=== PATIENT | female | born 1995 | race Hispanic/Latino ===

== ENCOUNTER 2017-03-13 09:09 | Emergency (ER) | payer MEDICAID ==
[2017-03-13 09:12] VITALS: BMI 29.8
[2017-03-13 09:13] VITALS: BP 123/60; PULSE 87; RESP 16; TEMP 98.6; O2SAT 97
--- NOTE | 2017-03-13 10:01 | ED PDOC ---
HPI: CCC, URI, Sore Throat Time Seen by Provider: 03/13/17 09:54 Chief Complaint (Nursing): ENT Problem Chief Complaint (Provider): COugh History Per: Patient History/Exam Limitations: no limitations Have you had recent travel within the past 21 days to any of the following countries: [place], [place], [place] or [place]?: No Onset/Duration Of Symptoms: Days (1 week) Current Symptoms Are (Timing): Still Present Additional Complaint(s): Pt. with cough, congestion, runny nose, green sputum from nose. No chest pain, dyspnea, fever. No weakness. States she missed her period for 2 weeks and wants to check her preg status. Is not having any abd pain, vaginal dc, dysuria. Past Medical History Reviewed: Nursing Documentation, Vital Signs Vital Signs: Last Vital Signs Temp 98.6 F 03/13/17 09:12 Pulse 87 03/13/17 09:12 Resp 16 03/13/17 09:12 BP 123/60 03/13/17 09:12 Pulse Ox 97 03/13/17 09:12 - Medical History Other PMH: sinus infections - Surgical History Surgical History: No Surg Hx - Family History Family History: States: Unknown Family Hx - Living Arrangements Living Arrangements: With Family - Social History Current smoker - smoking cessation education provided: No Alcohol: None Drugs: Denies - Home Medications Home Medications: Ambulatory Orders Medication Instructions Recorded Azithromycin [Zithromax] 250 mg PO DAILY 5 Days tab 03/13/17 - Allergies Allergies/Adverse Reactions: Allergies Allergy/AdvReac Type Severity Reaction Status Date / Time No Known Allergies Allergy Verified 03/13/17 09:59 Review of Systems Constitutional: Negative for: Fever, Weakness ENT: Positive for: Nose Pain, Nose Discharge, Nose Congestion, Throat Pain Respiratory: Positive for: Cough. Negative for: Shortness of Breath, Sputum Gastrointestinal: Negative for: Nausea, Vomiting, Abdominal Pain, Diarrhea Genitourinary Female: Negative for: Dysuria Neurological: Negative for: Weakness, Numbness Physical Exam - Reviewed Nursing Documentation Reviewed: Yes Vital Signs Reviewed: Yes - Physical Exam Appears: Positive for: Non-toxic, No Acute Distress Head Exam: Positive for: ATRAUMATIC, NORMAL INSPECTION, NORMOCEPHALIC ENT: Positive for: Sinus Pain/Drainage (sinus pain frontal and maxillary sinus b /l), Nasal Congestion. Negative for: Pharyngeal Erythema, Tonsillar Exudate, Tonsillar Swelling Neck: Positive for: Normal, Painless ROM, Supple Cardiovascular/Chest: Positive for: Regular Rate, Rhythm Respiratory: Positive for: Normal Breath Sounds Gastrointestinal/Abdominal: Positive for: Normal Exam, Bowel Sounds, Soft. Negative for: Tenderness Back: Positive for: Normal Inspection. Negative for: L CVA Tenderness, R CVA Tenderness Extremity: Positive for: Normal ROM. Negative for: Tenderness, Pedal Edema - ECG O2 Sat by Pulse Oximetry: 97 Pulse Ox Interpretation: Normal - Progress ED Course And Treament: 1002: Stable. AAOx3. Pain free. Tolerated PO. Preg found out in ED. No abd pain, weakness, dysuria, pelvic pain, vaginal bleeding. Disposition - Clinical Impression Clinical Impression: Sinusitis, Early stage of - Patient ED Disposition Is Patient to be Admitted: No Counseled Patient/Family Regarding: Studies Performed, Diagnosis, Need For Followup, Rx Given - Disposition Referrals: [facility] [Outside] - 03/14/17 [facility] [Outside] - 03/14/17 Disposition: Routine/Home Disposition Time: 10:04 Condition: STABLE Additional Instructions: Return if not better in 3 days. Prescriptions: Azithromycin [Zithromax] 250 mg PO DAILY 5 Days tab Instructions: Sinusitis (ED), (ED) Forms: [facility] (North Korean), [facility] ED School/Work Excuse
== END 2017-03-13 10:20 | disposition home or self-care (01) ==
LOC: H.ER 09:09
DX: J32.9 Chronic sinusitis, unspecified (principal); Z33.1 Pregnant state, incidental

== ENCOUNTER 2017-03-15 18:33 | Emergency (ER) | payer MEDICAID ==
[2017-03-15 18:33] VITALS: BMI 29.8
[2017-03-15 19:02] VITALS: BP 128/71; PULSE 90; RESP 16; TEMP 98.3; O2SAT 98
[2017-03-15] MEDS ORDERED: Albuterol-Ipratrop 3 mg / 0.5 (3 ml) UD INH STA (19:44)
[2017-03-15] MEDS ORDERED: Sodium Chloride 0.9% 1,000 ML IV STA (19:44)
[2017-03-15] MEDS ORDERED: Albuterol-Ipratrop 3 mg / 0.5 (3 ml) UD ONE (19:56)
--- NOTE | 2017-03-15 21:23 | ED PDOC ---
HPI: CCC, URI, Sore Throat Time Seen by Provider: 03/15/17 19:29 Chief Complaint (Nursing): Flu-like Symptoms Chief Complaint (Provider): Congestion History Per: Patient History/Exam Limitations: no limitations Additional Complaint(s): Patient is a 21 y/o female with no significant past medical history presenting to the emergency department for congestion, dry cough, generalized weakness, chills, and nausea. Notes that she was seen in the ED recently for flu -like symptoms and was given a z-luke. Despite being compliant with the medication for two days, patient reports feeling worse. Notes that she has not been drinking adequate fluids due to her nausea. Denies diarrhea, vomiting, urinary symptoms, or other complaints. Of note, patient was made aware that she during the previous ED visit for the flu-like complaint. PCP: none provided. Past Medical History Reviewed: Historical Data, Nursing Documentation, Vital Signs Vital Signs: Last Vital Signs Temp 98.3 F 03/15/17 18:59 Pulse 90 03/15/17 18:59 Resp 16 03/15/17 18:59 BP 128/71 03/15/17 18:59 Pulse Ox 98 03/16/17 03:13 - Medical History PMH: No Chronic Diseases - Surgical History Surgical History: No Surg Hx - Family History Family History: States: No Known Family Hx - Social History Current smoker - smoking cessation education provided: No Ex-Smoker (has not smoked in the last 12 months): No Alcohol: None Drugs: Denies - Home Medications Home Medications: Ambulatory Orders Medication Instructions Recorded Azithromycin [Zithromax] 250 mg PO DAILY 5 Days tab 03/13/17 Albuterol HFA [Ventolin HFA 90 1 - 2 puff IH Q6 PRN #1 inhaler 03/15/17 mcg/actuation (8 g)] - Allergies Allergies/Adverse Reactions: Allergies Allergy/AdvReac Type Severity Reaction Status Date / Time No Known Allergies Allergy Verified 03/15/17 18:59 Review of Systems ROS Statement: Except As Marked, All Systems Reviewed And Found Negative Constitutional: Positive for: Chills, Weakness, Malaise, Other (fatigue) ENT: Positive for: Nose Congestion Respiratory: Positive for: Cough (dry) Gastrointestinal: Positive for: Nausea. Negative for: Vomiting, Diarrhea Genitourinary Female: Negative for: Dysuria, Hematuria Physical Exam - Reviewed Nursing Documentation Reviewed: Yes Vital Signs Reviewed: Yes - Physical Exam Appears: Positive for: Well, Non-toxic, No Acute Distress Head Exam: Positive for: ATRAUMATIC, NORMAL INSPECTION, NORMOCEPHALIC Skin: Positive for: Normal Color, Warm, Dry Eye Exam: Positive for: Normal appearance Neck: Positive for: Normal Cardiovascular/Chest: Positive for: Tachycardia. Negative for: Regular Rate, Rhythm Respiratory: Positive for: Decreased Breath Sounds (bilateral). Negative for: Accessory Muscle Use, Respiratory Distress Gastrointestinal/Abdominal: Positive for: Normal Exam, Soft. Negative for: Tenderness Extremity: Positive for: Normal ROM Neurologic/Psych: Positive for: Alert, Oriented (x3) - Laboratory Results Result Diagrams: 03/15/17 21:46 03/15/17 21:46 - ECG O2 Sat by Pulse Oximetry: 98 (RA) Pulse Ox Interpretation: Normal Medical Decision Making Medical Decision Making: Time: 19:53 Initial impression: Patient is a 21 year old female with generalized weakness, fatigue, and past flu-like symptoms in the setting of . Initial plan: Labs: Beta-HCG, CMP, CBC ED Urine Dipstick Albuterol 3 mL INH Peak flow pre and post treatment Urinalysis [place] test Reevaluation 22:30 Labs reviewed no clinically significant abnormalities. Patient reports improvement and is stable on discharge Patient is stable for discharge home DX URI, FU PCP 2 days, push fluids, RX Albuterol and continue Zpack Scribe Attestation: Documented by Adriana Kang, acting as a scribe for Wilfrido Garcia MD. Provider Scribe Attestation: All medical record entries made by the Scribe were at my direction and personally dictated by me. I have reviewed the chart and agree that the record accurately reflects my personal performance of the history, physical exam, medical decision making, and the department course for this patient. I have also personally directed, reviewed, and agree with the discharge instructions and disposition. Disposition - Clinical Impression Clinical Impression: URI (upper respiratory infection), Early stage of - Patient ED Disposition Is Patient to be Admitted: No - Disposition Disposition: Routine/Home Disposition Time: 22:30 Condition: STABLE Prescriptions: Albuterol HFA [Ventolin HFA 90 mcg/actuation (8 g)] 1 - 2 puff IH Q6 PRN #1 inhaler PRN Reason: cough/SOB Instructions: Upper Respiratory Infection (ED) Forms: [employer] (Kiswahili)
[2017-03-15 21:50] LABS: BASO # 0.1 K/uL (0.0-0.2); EOS # 0.1 K/uL (0.0-0.7); EOS % 1.2 % (0.0-4.0); HEMATOCRIT 37.6 % (34.0-47.0); LYMPH # 1.6 K/uL (1.0-4.3); LYMPH % 26.8 % (20.0-40.0); MEAN CELL VOLUME 89.7 fl (81.0-99.0); MEAN CORPUSCULAR HEMOGLOBIN 30.5 pg (27.0-31.0); MEAN PLATELET VOLUME 10.1 fl (7.2-11.7); MONO # 0.8 K/uL (0.0-0.8); MONO % 14.1 % (0.0-10.0); NEUT # 3.4 K/uL (1.8-7.0); NEUT % 56.9 % (50.0-75.0); RED CELL DISTRIBUTION WIDTH 11.9 % (11.5-14.5)
[2017-03-15 21:58] LABS: RBC URINE 3 /hpf (0-3); URINE BACTERIA RARE (<OCC); URINE BILIRUBIN NEGATIVE (NEGATIVE); URINE BLOOD NEGATIVE (NEGATIVE); URINE COLOR YELLOW (YELLOW); URINE GLUCOSE (UA) NEG (Normal); URINE KETONE TRACE mg/dL (NEGATIVE); URINE LEUKOCYTE ESTERASE NEG Leu/uL (Negative); URINE PROTEIN 30 mg/dL (NEGATIVE); URINE UROBILINOGEN 0.2-1.0 mg/dL (0.2-1.0); WBC URINE 1 /hpf (0-5)
[2017-03-15 22:01] LABS: ALB/GLOB RATIO 1.5 (1.0-2.1); ALKALINE PHOSPHATASE 49 U/L (38-126); ALT/SGPT 36 U/L (9-52); AST/SGOT 25 U/L (14-36); BILIRUBIN,TOTAL 0.4 mg/dl (0.2-1.3); BLOOD UREA NITROGEN 11 mg/dl (7-17); CALCIUM 9.4 mg/dL (8.4-10.2); CARBON DIOXIDE 22 mmol/L (22-30); CHLORIDE 105 mmol/L (98-107); GFR AFRICAN-AMERICAN > 60; GLUCOSE,RANDOM 70 mg/dL (65-105); POTASSIUM 3.5 MMOL/L (3.6-5.0); SODIUM 141 mmol/l (132-148); TOTAL PROTEIN 7.6 G/DL (6.3-8.2)
== END 2017-03-15 23:59 | disposition home or self-care (01) ==
LOC: H.ER 18:33
DX: J06.9 Acute upper respiratory infection, unspecified (principal); Z33.1 Pregnant state, incidental
CPT/HCPCS: 80053; 81003; 84702; 85025; 86308; 87804; 96360; 99283; J7040

== ENCOUNTER 2017-04-07 10:51 | Emergency (ER) | payer MEDICAID ==
[2017-04-07 10:53] VITALS: BMI 30.7
[2017-04-07 10:55] VITALS: BP 134/77; PULSE 95; RESP 17; TEMP 98.4; O2SAT 98
--- NOTE | 2017-04-07 11:17 | ED PDOC ---
HPI: General Adult Time Seen by Provider: 04/07/17 11:15 Chief Complaint (Nursing): Abnormal Labs History Per: Patient (21 y/o female 10 week here due to inability to obtain f/u. States she was seen for cough/dehydration recently and noted to have thromocytopenia. Has been unable to obtain appt with women[facility] clinic b/c of this.) Past Medical History Reviewed: Historical Data, Nursing Documentation, Vital Signs Vital Signs: Last Vital Signs Temp 98.4 F 04/07/17 10:53 Pulse 95 H 04/07/17 10:53 Resp 17 04/07/17 10:53 BP 134/77 04/07/17 10:53 Pulse Ox 98 04/07/17 11:22 - Family History Family History: States: Unknown Family Hx - Home Medications Home Medications: Ambulatory Orders Medication Instructions Recorded Azithromycin [Zithromax] 250 mg PO DAILY 5 Days tab 03/13/17 Albuterol HFA [Ventolin HFA 90 1 - 2 puff IH Q6 PRN #1 inhaler 03/15/17 mcg/actuation (8 g)] - Allergies Allergies/Adverse Reactions: Allergies Allergy/AdvReac Type Severity Reaction Status Date / Time No Known Allergies Allergy Verified 03/15/17 18:59 Review of Systems ROS Statement: Except As Marked, All Systems Reviewed And Found Negative Physical Exam - Reviewed Nursing Documentation Reviewed: Yes Vital Signs Reviewed: Yes - Physical Exam Appears: Positive for: Well, Non-toxic, No Acute Distress Head Exam: Positive for: ATRAUMATIC, NORMAL INSPECTION, NORMOCEPHALIC Skin: Positive for: Normal Color, Warm, DRY Eye Exam: Positive for: EOMI, Normal appearance, PERRL ENT: Positive for: Normal ENT Inspection Neck: Positive for: Normal, Painless ROM Cardiovascular/Chest: Positive for: Regular Rate, Rhythm Respiratory: Positive for: CNT, Normal Breath Sounds Gastrointestinal/Abdominal: Positive for: Normal Exam, Bowel Sounds, Soft Back: Positive for: Normal Inspection Extremity: Positive for: Normal ROM Neurologic/Psych: Positive for: Alert, Oriented - ECG O2 Sat by Pulse Oximetry: 98 - Progress ED Course And Treament: patient to f/u with high risk outpatient. d/w acid recovery operator service who will help her with appointment. Disposition - Clinical Impression Clinical Impression: Thrombocytopenia during - Patient ED Disposition Is Patient to be Admitted: No - Disposition Disposition: Routine/Home Disposition Time: 11:36 Condition: FAIR Additional Instructions: CALL [phone] AND SPEAK WITH [employer] TO MAKE APPOINTMENT Instructions: Thrombocytopenia (ED) Forms: [employer] (Portuguese)
== END 2017-04-07 12:01 | disposition home or self-care (01) ==
LOC: H.ER 10:51
DX: O99.111 Other diseases of the blood and blood-forming organs and certain disorders involving the immune mechanism complicating pregnancy, first trimester (principal); Z3A.10 10 weeks gestation of pregnancy

== ENCOUNTER 2017-06-16 13:49 | Emergency (ER) | payer SELFPAY ==
[2017-06-16 13:50] VITALS: BMI 30.7
[2017-06-16 14:12] VITALS: BP 98/68; PULSE 100; RESP 16; TEMP 98; O2SAT 98
--- NOTE | 2017-06-16 14:43 | ED PDOC ---
HPI: Nose Bleed Time Seen by Provider: 06/16/17 14:18 Chief Complaint (Nursing): ENT Problem Chief Complaint (Provider): Nosebleed History Per: Patient History/Exam Limitations: no limitations Additional Complaint(s): Pt @ 20 weeks reports bleeding with clots from R nare today that last 10 minutes. Pt has h/o thrombocytopenia. Denies nausea, vomiting, abdominal pain , vaginal bleeding, dysuria, hematuria. Past Medical History Reviewed: Nursing Documentation, Vital Signs Vital Signs: Last Vital Signs Temp 98.0 F 06/16/17 14:08 Pulse 100 H 06/16/17 14:08 Resp 16 06/16/17 14:08 BP 98/68 L 06/16/17 14:08 Pulse Ox 98 06/16/17 14:08 - Medical History Other PMH: Thrombocytopenia - Surgical History Surgical History: Appendectomy - Family History Family History: States: Unknown Family Hx - Social History Current smoker - smoking cessation education provided: No Alcohol: None - Home Medications Home Medications: Ambulatory Orders Medication Instructions Recorded Azithromycin [Zithromax] 250 mg PO DAILY 5 Days tab 03/13/17 Albuterol HFA [Ventolin HFA 90 1 - 2 puff IH Q6 PRN #1 inhaler 03/15/17 mcg/actuation (8 g)] - Allergies Allergies/Adverse Reactions: Allergies Allergy/AdvReac Type Severity Reaction Status Date / Time No Known Allergies Allergy Verified 03/15/17 18:59 Review of Systems Constitutional: Negative for: Fever, Chills ENT: Positive for: Other (Epistaxis) Cardiovascular: Negative for: Chest Pain, Palpitations Respiratory: Negative for: Cough, Shortness of Breath Gastrointestinal: Negative for: Nausea, Vomiting, Abdominal Pain, Diarrhea Genitourinary Female: Negative for: Vaginal Discharge, Vaginal Bleeding Musculoskeletal: Negative for: Back Pain Skin: Negative for: Rash, Lesions Neurological: Negative for: Headache Physical Exam - Reviewed Nursing Documentation Reviewed: Yes Vital Signs Reviewed: Yes - Physical Exam Appears: Positive for: Well, No Acute Distress Head Exam: Positive for: ATRAUMATIC, NORMAL INSPECTION Skin: Positive for: Normal Color, Warm, Dry Eye Exam: Positive for: Normal appearance, EOMI, PERRL ENT: Positive for: Pharynx Is (Clear), Other (NARES: No blood, no lesions). Negative for: Nasal Congestion Cardiovascular/Chest: Positive for: Regular Rate, Rhythm Respiratory: Positive for: Normal Breath Sounds Gastrointestinal/Abdominal: Positive for: Bowel Sounds, Soft (Gravid). Negative for: Tenderness Back: Positive for: Normal Inspection Neurologic/Psych: Positive for: Alert, Oriented - Laboratory Results Result Diagrams: 06/16/17 15:05 06/16/17 15:05 - ECG O2 Sat by Pulse Oximetry: 98 Pulse Ox Interpretation: Normal - Physician Consult Information Time Consulting Physican Contacted: 16:01 Physician Contacted: Renzo Hagen Outcome Of Conversation: Recommends follow-up with Dr. Hagen. If return of bleeding, she should go to tertiary care center. Medical Decision Making Medical Decision Makin yo @ 20 weeks and thrombocytopenia with epistaxis. - labs --Call placed to Dr. Covarrubias but at convention and unreachable. Patient states she has an appointment with Dr. Covarrubias on . Advised to make an earlier appointment. 16:25 --Will call in Stockpile to her pharmacy. Disposition - Clinical Impression Clinical Impression: Epistaxis, Thrombocytopenia, Anemia affecting in second trimester, UTI (urinary tract infection) in in second trimester - Patient ED Disposition Is Patient to be Admitted: No - Disposition Referrals: Bryson Covarrubias MD [Family Provider] - Disposition: Routine/Home Disposition Time: 16:02 Condition: STABLE Additional Instructions: FOLLOW-UP [facility]. Instructions: Nosebleeds, Anemia of Chronic Disease, Bleeding Precautions Forms: [employer] (Bruneian) Addendum Addendum: 06/25/17 07:17 Pt contacted by [employer], referrals for Ob and Heme-Onc ordered.
[2017-06-16 15:13] LABS: BASO % 0.5 % (0.0-2.0); EOS % 0.7 % (0.0-4.0); LYMPH # 1.3 K/uL (1.0-4.3); LYMPH % 17.2 % (20.0-40.0); MEAN CELL VOLUME 91.3 fl (81.0-99.0); MEAN CORPUSCULAR HEMOGLOBIN 30.9 pg (27.0-31.0); MEAN CORPUSCULAR HGB CONC 33.9 g/dL (33.0-37.0); MEAN PLATELET VOLUME 9.8 fl (7.2-11.7); MONO # 0.6 K/uL (0.0-0.8); MONO % 7.9 % (0.0-10.0); NEUT # 5.4 K/uL (1.8-7.0); NEUT % 73.7 % (50.0-75.0); RBC 3.25 Mil/uL (3.80-5.20); RED CELL DISTRIBUTION WIDTH 12.8 % (11.5-14.5); WHITE BLOOD COUNT 7.3 K/uL (4.8-10.8)
[2017-06-16 15:30] LABS: ALB/GLOB RATIO 1.4 (1.0-2.1); ALBUMIN 3.6 g/dL (3.5-5.0); ALT/SGPT 42 U/L (9-52); AST/SGOT 22 U/L (14-36); BLOOD UREA NITROGEN 7 mg/dl (7-17); CALCIUM 8.8 mg/dL (8.4-10.2); GFR AFRICAN-AMERICAN > 60; GFR NON-AFRICAN AMERICAN > 60
[2017-06-16] MEDS ORDERED: Potassium Chloride 20 mEq ER Tab PO STA (15:31)
[2017-06-16] MEDS ORDERED: Potassium Chloride 20 mEq ER Tab PO ONE (16:08)
[2017-06-16 16:17] LABS: SQUAMOUS EPITHIAL 27 /hpf (0-5); URINE BACTERIA RARE (<OCC); URINE BILIRUBIN NEGATIVE (NEGATIVE); URINE BLOOD NEGATIVE (NEGATIVE); URINE CLARITY CLOUDY (Clear); URINE COLOR YELLOW (YELLOW); URINE GLUCOSE (UA) NEG (Normal); URINE LEUKOCYTE ESTERASE TRACE Leu/uL (Negative); URINE PROTEIN NEGATIVE (NEGATIVE); URINE UROBILINOGEN 0.2-1.0 mg/dL (0.2-1.0)
== END 2017-06-16 16:15 | disposition home or self-care (01) ==
LOC: H.ER 13:49
DX: R04.0 Epistaxis (principal); O99.012 Anemia complicating pregnancy, second trimester; O36.82 Fetal anemia and thrombocytopenia

== ENCOUNTER 2017-06-29 08:55 | Emergency (ER) | payer MEDICAID, OTHER ==
[2017-06-29 08:56] VITALS: BMI 30.7
[2017-06-29 09:23] VITALS: TEMP 98.4; O2SAT 97
--- NOTE | 2017-06-29 09:38 | ED PDOC ---
HPI: General Adult Time Seen by Provider: 06/29/17 09:24 Chief Complaint (Nursing): Abnormal Skin Integrity Chief Complaint (Provider): pruiritis History Per: Patient (21 y/o female 21 week gestation here for evaluation of pruiritis of hands/feet/legs x few days. No rash noted. Unable to obtain labwork until 3 weeks and was sent by clinic to have evaluation of possible elevated bilirubin. Denies any other symptoms. Has not taken any mediation for itching.) Past Medical History Reviewed: Historical Data, Nursing Documentation, Vital Signs Vital Signs: Last Vital Signs Temp 98.4 F 06/29/17 09:18 Pulse 101 H 06/29/17 09:18 Resp 19 06/29/17 09:18 BP 107/67 06/29/17 09:18 Pulse Ox 97 06/29/17 09:38 - Surgical History Surgical History: Appendectomy - Family History Family History: States: Unknown Family Hx - Home Medications Home Medications: Ambulatory Orders Medication Instructions Recorded Azithromycin [Zithromax] 250 mg PO DAILY 5 Days tab 03/13/17 Albuterol HFA [Ventolin HFA 90 1 - 2 puff IH Q6 PRN #1 inhaler 03/15/17 mcg/actuation (8 g)] DiphenhydrAMINE [Benadryl] 1 - 2 tab PO Q6 PRN #24 cap 06/29/17 - Allergies Allergies/Adverse Reactions: Allergies Allergy/AdvReac Type Severity Reaction Status Date / Time No Known Allergies Allergy Verified 03/15/17 18:59 Review of Systems ROS Statement: Except As Marked, All Systems Reviewed And Found Negative Physical Exam - Reviewed Nursing Documentation Reviewed: Yes Vital Signs Reviewed: Yes - Physical Exam Appears: Positive for: Well, Non-toxic, No Acute Distress Head Exam: Positive for: ATRAUMATIC, NORMAL INSPECTION, NORMOCEPHALIC Skin: Positive for: Normal Color, Warm, DRY Eye Exam: Positive for: EOMI, Normal appearance, PERRL ENT: Positive for: Normal ENT Inspection Neck: Positive for: Normal, Painless ROM Cardiovascular/Chest: Positive for: Regular Rate, Rhythm Respiratory: Positive for: CNT, Normal Breath Sounds Gastrointestinal/Abdominal: Positive for: Normal Exam, Bowel Sounds, Soft Back: Positive for: Normal Inspection Extremity: Positive for: Normal ROM Neurologic/Psych: Positive for: Alert, Oriented - Laboratory Results Result Diagrams: 06/29/17 10:15 06/29/17 10:15 - ECG O2 Sat by Pulse Oximetry: 97 - Progress ED Course And Treament: Unable to reach patient's physician Dr. Saeed at clinic [phone] D/W DR. PLATA. ADVISED FOLLOW UP WITH HER [employer] FOR FURTHER EVALUATION BENADRYL 50MG X 1 DOSE IN ED Disposition - Clinical Impression Clinical Impression: Itching - Patient ED Disposition Is Patient to be Admitted: No - Disposition Disposition: Routine/Home Disposition Time: 11:42 Condition: FAIR Prescriptions: DiphenhydrAMINE [Benadryl] 1 - 2 tab PO Q6 PRN #24 cap PRN Reason: Itching / Pruritus Instructions: Itchy Skin Forms: [facility] (Slovak)
[2017-06-29 10:35] LABS: BASO % 0.2 % (0.0-2.0); EOS # 0.1 K/uL (0.0-0.7); EOS % 0.8 % (0.0-4.0); HEMOGLOBIN 10.4 g/dL (12.0-16.0); LYMPH # 1.2 K/uL (1.0-4.3); LYMPH % 14.2 % (20.0-40.0); MEAN CELL VOLUME 91.2 fl (81.0-99.0); MEAN CORPUSCULAR HEMOGLOBIN 32.7 pg (27.0-31.0); MEAN CORPUSCULAR HGB CONC 35.9 g/dL (33.0-37.0); MEAN PLATELET VOLUME 9.3 fl (7.2-11.7); MONO # 0.6 K/uL (0.0-0.8); MONO % 7.4 % (0.0-10.0); NEUT # 6.3 K/uL (1.8-7.0); NEUT % 77.4 % (50.0-75.0); NRBC % 0.1 % (0.0-0.0); RBC 3.16 Mil/uL (3.80-5.20); RED CELL DISTRIBUTION WIDTH 12.4 % (11.5-14.5); WHITE BLOOD COUNT 8.2 K/uL (4.8-10.8)
[2017-06-29 11:02] LABS: ALB/GLOB RATIO 1.1 (1.0-2.1); ALBUMIN 3.2 g/dL (3.5-5.0); ALT/SGPT 45 U/L (9-52); AST/SGOT 30 U/L (14-36); BLOOD UREA NITROGEN 8 mg/dl (7-17); CALCIUM 8.9 mg/dL (8.4-10.2); GFR AFRICAN-AMERICAN > 60; GFR NON-AFRICAN AMERICAN > 60
[2017-06-29 12:23] VITALS: BP 110/70; PULSE 92; RESP 18
== END 2017-06-29 11:52 | disposition home or self-care (01) ==
LOC: H.ER 08:55
DX: L29.9 Pruritus, unspecified (principal); Z3A.21 21 weeks gestation of pregnancy